=== PATIENT | female | born 1955 | race Caucasian/White ===

== ENCOUNTER 2023-04-11 15:25 | Outpatient (OUT) | payer BC, SELFPAY ==
[2023-04-11 16:03] LABS: Basophils Absolute Auto 0.1 10^3/uL (0.0-0.1); Basophils Percent Auto 1.3 % (0.2-2.0); Eosinophils Absolute Auto 0.2 10^3/uL (0.0-0.7); Eosinophils Percent Auto 2.8 % (0.9-7.0); Hematocrit 43.1 % (36.0-48.0); Hemoglobin 13.9 g/dL (12.0-16.0); Immature Granulocytes Abs Auto 0.02 10^3/uL (0.00-0.03); Immature Granulocytes Pct Auto 0.3 % (0.0-0.5); Lymphocytes Absolute Auto 2.1 10^3/uL (1.2-3.8); Lymphocytes Percent Auto 25.6 % (20.5-60.0); Mean Corpuscular HGB Conc 32.3 g/dL (29.9-35.2); Mean Platelet Volume 9.8 fL (9.5-13.5); Monocytes Absolute Auto 0.7 10^3/uL (0.3-0.8); Monocytes Percent Auto 9.1 % (1.7-12.0); Neutrophils Absolute Auto 4.9 10^3/uL (1.4-6.5); Neutrophils Percent Auto 60.9 % (43.0-75.0); Platelet Count 261 10^3/uL (150-450); Red Blood Count 4.79 10^6/uL (4.20-5.40); Red Cell Distribution Width 13.3 % (11.0-15.0)
[2023-04-11 16:19] LABS: Bilirubin Urine NEGATIVE (NEGATIVE); Blood Urine NEGATIVE (NEGATIVE); Clarity Urine CLEAR (CLEAR); Color Urine LT. YELLOW (YELLOW); Glucose Urine UA NEGATIVE (NEGATIVE); Ketones Urine NEGATIVE (NEGATIVE); Leukocyte Esterase Urine NEGATIVE (NEGATIVE); Nitrite Urine NEGATIVE (NEGATIVE); Protein Urine NEGATIVE (NEG/TRACE); Specific Gravity Urine <=1.005 (1.005-1.025); Urobilinogen Urine 0.2 EU/dL (0.2-1.0)
[2023-04-11 16:24] LABS: Estimated Average Glucose 100 mg/dL; Glycohemoglobin A1C 5.1 % (4.5-6.2)
[2023-04-11 16:38] LABS: Alanine Aminotransferase 20 U/L (14-59); Albumin Globulin Ratio 0.9; Albumin Level 3.8 g/dL (3.4-5.0); Alkaline Phosphatase 86 U/L (46-116); Anion Gap 9.2; Aspartate Amino Transferase 17 U/L (15-37); BUN Creatinine Ratio 23.3; Bilirubin Total 1.3 mg/dL (0.2-1.0); Calcium 9.3 mg/dL (8.5-10.1); Carbon Dioxide 28.5 mmol/L (21.0-32.0); Chloride 102 mmol/L (98-107); Estimated GFR (African America >60 (>=60); Estimated GFR (Non-African Ame >60 (>=60); Free T3 3.34 pg/mL (2.18-3.98); Globulin 4.1 g/dL; Glucose 89 mg/dL (74-106); Potassium 3.7 mmol/L (3.5-5.1); Sodium 136 mmol/L (136-145); Thyroid Stimulating Hormone 0.223 uIU/mL (0.358-3.740); Total Protein 7.9 g/dL (6.4-8.2)
[2023-04-11 17:03] LABS: Free T4 0.75 ng/dL (0.76-1.46)
== END 2023-04-11 15:26 | disposition home or self-care (01) ==
DX: R35.0 Frequency of micturition (principal); M54.50 Low back pain, unspecified; E03.9 Hypothyroidism, unspecified; R79.82 Elevated C-reactive protein (CRP); E55.9 Vitamin D deficiency, unspecified; E53.9 Vitamin B deficiency, unspecified
CPT/HCPCS: 36415; 80053; 81003; 82306; 82607; 82746; 83036; 84439; 84443; 84481; 85025; 86140; 87086

== ENCOUNTER 2023-05-31 18:41 | Emergency (ER) | payer BC, SELFPAY ==
[2023-05-31 18:46] VITALS: BP 178/82; PULSE 67; RESP 16; TEMP 36.6; O2SAT 99; BMI 35.7
[2023-05-31 19:27] LABS: Basophils Absolute Auto 0.2 10^3/uL (0.0-0.1); Basophils Percent Auto 1.5 % (0.2-2.0); Eosinophils Absolute Auto 0.3 10^3/uL (0.0-0.7); Eosinophils Percent Auto 3.1 % (0.9-7.0); Hematocrit 45.7 % (36.0-48.0); Hemoglobin 14.5 g/dL (12.0-16.0); Immature Granulocytes Abs Auto 0.03 10^3/uL (0.00-0.03); Immature Granulocytes Pct Auto 0.3 % (0.0-0.5); Lymphocytes Absolute Auto 2.7 10^3/uL (1.2-3.8); Mean Corpuscular HGB Conc 31.7 g/dL (29.9-35.2); Mean Corpuscular Hemoglobin 28.7 pg (26.7-34.0); Mean Corpuscular Volume 90.3 fL (81.0-99.0); Mean Platelet Volume 9.5 fL (9.5-13.5); Monocytes Absolute Auto 0.8 10^3/uL (0.3-0.8); Monocytes Percent Auto 8.3 % (1.7-12.0); Neutrophils Absolute Auto 5.9 10^3/uL (1.4-6.5); Neutrophils Percent Auto 59.8 % (43.0-75.0); Platelet Count 330 10^3/uL (150-450); Red Blood Count 5.06 10^6/uL (4.20-5.40); Red Cell Distribution Width 13.2 % (11.0-15.0); White Blood Count 9.9 10^3/uL (4.0-11.0)
[2023-05-31 19:28] LABS: Bilirubin Urine NEGATIVE (NEGATIVE); Blood Urine NEGATIVE (NEGATIVE); Clarity Urine CLEAR (CLEAR); Color Urine YELLOW (YELLOW); Glucose Urine UA NEGATIVE (NEGATIVE); Ketones Urine NEGATIVE (NEGATIVE); Leukocyte Esterase Urine NEGATIVE (NEGATIVE); Nitrite Urine NEGATIVE (NEGATIVE); Protein Urine NEGATIVE (NEG/TRACE); Specific Gravity Urine >=1.030 (1.005-1.025); Urine Microscopic Indicated NO; Urobilinogen Urine 0.2 EU/dL (0.2-1.0); pH Urine 5.5 (5.0-9.0)
--- NOTE | 2023-05-31 19:29 | CT_ITS ---
The [address] [address] Patient Name: KIP FLORES MRN: [id number] date: 1955 Sex: F Assigned Patient Location: ER Current Patient Location: ER Accession/Order Number: [id number] Exam Date: 05/31/2023 19:59 Report Date: 05/31/2023 20:36 At the request of: NARDA BEACH Procedure: CT abdomen pelvis wo con CT ABDOMEN/PELVIS WITHOUT IV CONTRAST. INDICATION: upper abdominal pain COMPARISON: There are no other studies available for comparison. TECHNIQUE: Contiguous axial images were obtained from the lung bases to the pelvic floor without intravenous or oral contrast. Coronal and sagittal reformations are provided. FINDINGS: LOWER LUNGS: Clear. LIVER/BILIARY TREE: No discrete lesion. No intrahepatic ductal dilatation. GALLBLADDER: Status post cholecystectomy.. CBD: Normal CBD. SPLEEN: Normal in size. PANCREAS: No appreciable peripancreatic fluid. No pancreatic ductal dilatation. No discrete lesion. ADRENALS: Normal. KIDNEYS: No hydronephrosis. No radiopaque calculus. STOMACH AND BOWEL: Stomach is unremarkable. No dilated bowel loops. No bowel wall thickening. APPENDIX: Not well-visualized. PERITONEAL CAVITY: No fluid. No fat stranding. ABDOMINAL WALL: No subcutaneous stranding. No subcutaneous fluid collection. LYMPH NODES: No mesenteric or retroperitoneal lymphadenopathy by CT criteria. ABDOMINAL AORTA: No aneurysm. PELVIS: No acute abnormality. MUSCULOSKELETAL: No acute osseous abnormality. CT/CT abdomen pelvis wo con IMPRESSION: No acute abnormality in the abdomen or pelvis. Electronically authenticated by: NELI BIRD Date: 05/31/2023 20:36
[2023-05-31 19:40] LABS: Alanine Aminotransferase 22 U/L (14-59); Albumin Globulin Ratio 0.9; Albumin Level 3.8 g/dL (3.4-5.0); Alkaline Phosphatase 108 U/L (46-116); Anion Gap 12.5; Aspartate Amino Transferase 16 U/L (15-37); BUN Creatinine Ratio 22.1; Bilirubin Total 0.7 mg/dL (0.2-1.0); Carbon Dioxide 32.2 mmol/L (21.0-32.0); Chloride 103 mmol/L (98-107); Estimated GFR (African America >60 (>=60); Estimated GFR (Non-African Ame >60 (>=60); Globulin 4.3 g/dL; Glucose 93 mg/dL (74-106); Potassium 3.7 mmol/L (3.5-5.1); Sodium 144 mmol/L (136-145); Total Protein 8.1 g/dL (6.4-8.2)
--- NOTE | 2023-05-31 19:44 | ED.GENADUL1 ---
HPI - General Adult General Chief complaint: Abdominal Pain Stated complaint: ABD PAIN/YELLOW SKIN Time Seen by Provider: 05/31/23 19:05 Source: patient Mode of arrival: walk-in Limitations: no limitations History of Present Illness HPI narrative: A 67-year-old female to the emergency department concern for jaundice. Patient reports that since Thanks she has had some cramping abdominal pain associated with diarrhea. The diarrhea is mostly resolved. She started [place] daughter about this today was concerned that her skin yellow. Patient also thinks that her later colored than typical. They came to emergency department for evaluation to make sure she doesn't have liver failure. She has history of cholecystectomy. Related Data Home Medications Medication Instructions Recorded Confirmed thyroid (pork) 15 mg tablet 15 mg PO BID 05/31/23 05/31/23 ([place] Thyroid) thyroid (pork) 30 mg tablet 30 mg PO BID 05/31/23 05/31/23 ([place] Thyroid) Allergies Allergy/AdvReac Type Severity Reaction Status Date / Time erythromycin base Allergy Severe Verified 05/31/23 18:45 Penicillins Allergy Unknown Verified 05/31/23 18:45 Sulfa (Sulfonamide Allergy Unknown Verified 05/31/23 18:45 Antibiotics) Review of Systems ROS Status of ROS 10 or more systems reviewed and unremarkable except as noted in history and below [facility] Surgical History (Updated 05/31/23 @ 18:53 by Josiah Martin) Hx of cholecystectomy ?Z90.49 - Acquired absence of other specified parts of digestive tract (ICD-10) History of ?Z98.891 - History of uterine scar from previous surgery (ICD-10) Social History Smoking status: Never smoker Exam Narrative Exam Narrative: VITALS: I have reviewed the triage vital signs. GENERAL: Well developed, well appearing adult in no acute distress. NEURO: Alert and oriented. Moves all extremities. Face is symmetric and expressive. EYES: PERRL. No scleral icterus or conjunctival injection. No discharge. HENT: Normocephalic, atraumatic. Hearing is grossly intact. Nares grossly patent and without discharge. Mucous membranes moist. NECK: No JVD. Patient moves neck without restriction. CARDIO: Rhythm regular. Normal rate. No murmur, rub, or gallop. Pulses equal bilaterally in the upper and lower extremity. No lower extremity edema. PULM: Lungs clear to auscultation in all james. No wheezes, rales, or rhonchi. No conversational dyspnea. No splinting, stridor, or accessory muscle use. GI/: Abdomen is soft and non-tender. Normoactive bowel sounds. EXTREMITIES: Symmetric muscle bulk. No joint swelling. No clubbing, cyanosis, or deformity. SKIN: Warm and dry. Normal turgor. No rash or lesions appreciated. PSYCH: Mood, affect, and interaction is appropriate to the setting. Constitutional Vital Signs, click to edit/add: Last Vital Signs Temp 98 F 05/31/23 18:46 Pulse 67 05/31/23 18:46 Resp 16 05/31/23 18:46 BP 178/82 H 05/31/23 18:46 Pulse Ox 99 05/31/23 18:46 O2 Del Method Room Air 05/31/23 18:46 Course Vital Signs Vital signs: Vital Signs Temperature 98 F 05/31/23 18:46 Pulse Rate 67 05/31/23 18:46 Respiratory Rate 16 05/31/23 18:46 Blood Pressure 178/82 H 05/31/23 18:46 Pulse Oximetry 99 05/31/23 18:46 Oxygen Delivery Method Room Air 05/31/23 18:46 Temperature 98 F 05/31/23 18:46 Pulse Rate 67 05/31/23 18:46 Respiratory Rate 16 05/31/23 18:46 Blood Pressure 178/82 H 05/31/23 18:46 Pulse Oximetry 99 05/31/23 18:46 Oxygen Delivery Method Room Air 05/31/23 18:46 Medical Decision Making [facility] Narrative Medical decision making narrative: 67-year-old female to the emergency department with chief complaint abdominal pain since and subjective yellow-colored skin noticed by her daughter. Vital stable, patient is afebrile. I doubt examination is benign. She does not have any scleral icterus or jaundice. Basic labs were ordered. CT scan abdomen and pelvis was ordered. He agrees with this plan. CT pelvis without acute findings. Her lab work is reviewed and is unremarkable. I discussed the reassuring workup with the patient. She'll follow up with her PCP. Discussed suspicion for postinfectious irritable bowel syndrome, I recommended probiotics. Patient agrees with this plan. Return precautions were discussed. All questions were answered. Patient was discharged home. Medical Records Medical records reviewed: Yes I reviewed the patient's medical records Lab Data Lab results reviewed: Yes I reviewed the patient's lab results Labs: Lab Results 05/31/23 05/31/23 Range/Units 19:15 19:19 WBC 9.9 (4.0-11.0) 10^3/uL RBC 5.06 (4.20-5.40) 10^6/uL Hgb 14.5 (12.0-16.0) g/dL Hct 45.7 (36.0-48.0) % MCV 90.3 (81.0-99.0) fL MCH 28.7 (26.7-34.0) pg MCHC 31.7 (29.9-35.2) g/dL RDW 13.2 (11.0-15.0) % Plt Count 330 (150-450) 10^3/uL MPV 9.5 (9.5-13.5) fL Neut % (Auto) 59.8 (43.0-75.0) % Lymph % (Auto) 27.0 (20.5-60.0) % [place] % (Auto) 8.3 (1.7-12.0) % Eos % (Auto) 3.1 (0.9-7.0) % Baso % (Auto) 1.5 (0.2-2.0) % Neut # (Auto) 5.9 (1.4-6.5) 10^3/uL Lymph # (Auto) 2.7 (1.2-3.8) 10^3/uL [place] # (Auto) 0.8 (0.3-0.8) 10^3/uL Eos # (Auto) 0.3 (0.0-0.7) 10^3/uL Baso # (Auto) 0.2 H (0.0-0.1) 10^3/uL Abs Immat Gran (auto) 0.03 (0.00-0.03) 10^3/uL Imm/Tot Granulo (auto) 0.3 (0.0-0.5) % Sodium 144 (136-145) mmol/L Potassium 3.7 (3.5-5.1) mmol/L Chloride 103 (98-107) mmol/L Carbon Dioxide 32.2 H (21.0-32.0) mmol/L Anion Gap 12.5 BUN 15.0 (7.0-18.0) mg/dL Creatinine 0.68 (0.55-1.02) mg/dL Est GFR ( Amer) >60 (>=60) Est GFR (Non-Af Amer) >60 (>=60) BUN/Creatinine Ratio 22.1 Glucose 93 (74-106) mg/dL Calcium 9.0 (8.5-10.1) mg/dL Total Bilirubin 0.7 (0.2-1.0) mg/dL AST 16 (15-37) U/L ALT 22 (14-59) U/L Alkaline Phosphatase 108 (46-116) U/L Total Protein 8.1 (6.4-8.2) g/dL Albumin 3.8 (3.4-5.0) g/dL Globulin 4.3 g/dL Albumin/Globulin Ratio 0.9 Lipase 63.0 (16.0-77.0) U/L Urine Color Yellow (YELLOW) Urine Clarity Clear (CLEAR) Urine pH 5.5 (5.0-9.0) Ur Specific [place] >=1.030 A (1.005-1.025) Urine Protein Negative (NEG/TRACE) mg/dL Urine Glucose (UA) Negative (NEGATIVE) mg/dL Urine Ketones Negative (NEGATIVE) mg/dL Urine Occult Blood Negative (NEGATIVE) Urine Nitrite Negative (NEGATIVE) Urine Bilirubin Negative (NEGATIVE) Urine Urobilinogen 0.2 (0.2-1.0) EU/dL Ur Leukocyte Esterase Negative (NEGATIVE) Imaging Data CT scan - abdomen: Attestation: I have reviewed the pertinent imaging results. Discharge Plan Discharge Chief Complaint: Abdominal Pain Clinical Impression: Abdominal pain Patient Disposition: Home, Self-Care Time of Disposition Decision: 20:50 Condition: Good Mode of Transportation: Private Vehicle Prescriptions / Home Meds: No Action thyroid (pork) [[place] Thyroid] 15 mg tablet 15 mg PO BID thyroid (pork) [[place] Thyroid] 30 mg tablet 30 mg PO BID Print Language: Turkmen Instructions: Abdominal Pain (ED) Additional Instructions: Follow-up with your doctor in the next week for review of symptoms. Take a probiotic. Stand Alone Forms: Portal Instructions Referrals: Physician,Non-Staff, MD [Primary Care Provider] - 1 week
[2023-05-31] MEDS: 0.9 % SODIUM CHLORIDE 1,000 ML 999 ML IV (20:09)
[2023-05-31 20:56] VITALS: BP 174/93; PULSE 78; RESP 16; O2SAT 100
[2023-05-31 21:00] VITALS: BP 150/80; PULSE 64; RESP 14; O2SAT 98
== END 2023-05-31 21:00 | disposition home or self-care (01) ==
PROVIDERS: Emergency Medicine; Emergency Provider Student in an Organized Health Care Education/Training Program
DX: R10.9 Unspecified abdominal pain (principal); Z90.49 Acquired absence of other specified parts of digestive tract; Z98.891 History of uterine scar from previous surgery; Z79.890 Hormone replacement therapy
CPT/HCPCS: 36415; 74176; 80053; 81003; 83690; 85025; 96360; 99285

== ENCOUNTER 2023-09-18 02:54 | Emergency (ER) | payer BC, SELFPAY ==
[2023-09-18 03:07] VITALS: BP 167/84; PULSE 71; TEMP 36.6; O2SAT 100; BMI 33.8
--- NOTE | 2023-09-18 03:23 | ED.EYEPROB1 ---
HPI - Eye Problem General Chief complaint: Eye Problems Stated complaint: L EYE DISCOMFORT Time Seen by Provider: 09/18/23 03:02 Source: patient Mode of arrival: walk-in Limitations: no limitations History of Present Illness HPI Narrative: Around 7pm the patient experienced a shimmery, kaleidoscope light change in her left peripheral field. She described it as an almost linear or boxlike edge but never had blackness or whiteness that accounted for loss of vision. This sensation was followed by a global headache that was worst in the occiput and around the eyes. She had additional episodes around the time that she was getting ready for bed. She never lost vision in either eye. She called the application tester nurse and was told to immediately come to the ED for evaluation. She arrives admitting to continued headache. No photophobia and no nausea or vomiting. No visual loss. She told me that she has had episodes similar to this in the past. She did not take anything for this headache tonight or prior to arrival. She wears readers but does not wear contact lenses or prescription glasses for distance. No recent injury to the head or neck. No recent upper extremity symptoms or URI. Related Data Home Medications ?Medication ?Instructions ?Recorded ?Confirmed thyroid (pork) 15 mg tablet 15 mg PO BID 05/31/23 05/31/23 ([place] Thyroid) thyroid (pork) 30 mg tablet 30 mg PO BID 05/31/23 05/31/23 ([place] Thyroid) Allergies Allergy/AdvReac Type Severity Reaction Status Date / Time erythromycin base Allergy Severe Verified 09/18/23 03:12 Penicillins Allergy Unknown Verified 09/18/23 03:12 Sulfa (Sulfonamide Allergy Unknown Verified 09/18/23 03:12 Antibiotics) [facility] Surgical History (Updated 05/31/23 @ 18:53 by Josiah Martin) Hx of cholecystectomy ?Z90.49 - Acquired absence of other specified parts of digestive tract (ICD-10) History of ?Z98.891 - History of uterine scar from previous surgery (ICD-10) Social History Smoking status: Never smoker Exam Narrative Exam Narrative: Nurses notes and vital signs reviewed and patient is not hypoxic. Afebrile General: Well-appearing and in no apparent distress. Skin: Warm, dry, no pallor noted. No rash to the face or around either eye. Head: Normocephalic, atraumatic. Neck: Supple, no meningismus. Eye: Pupils are equal, round and EOMI - Symmetrically reactive to light. No scleral icterus. No nystagmus. Normal accommodation and tracking. Ears, Nose, Mouth, and Throat: TM are clear, no posterior oropharynx erythema or nasal mucosal hypertrophy, uvula is mid-line Oral mucosa is moist Cardiovascular: Regular Rate and Rhythm without murmur, gallop or rub. Respiratory: No accessory muscle use or respiratory distress. Lungs are clear to auscultation, no wheezing, rales or rhonchi Musculoskeletal: normal ROM Neurological: A&O x4. No cranial nerve dysfunction observed. No truncal ataxia. Moves all extremities. Sensation intact. Psychiatric: Cooperative and interactive. Normal mood and affect. Constitutional Vital Signs, click to edit/add: Last Vital Signs Temp 97.8 F 09/18/23 03:07 Pulse 71 09/18/23 03:07 Resp 16 09/18/23 03:07 BP 167/84 H 09/18/23 03:07 Pulse Ox 100 09/18/23 03:07 O2 Del Method Room Air 09/18/23 03:07 Course Vital Signs Vital signs: Vital Signs Temperature 97.8 F 09/18/23 03:07 Pulse Rate 71 09/18/23 03:07 Respiratory Rate 16 09/18/23 03:07 Blood Pressure 167/84 H 09/18/23 03:07 Pulse Oximetry 100 09/18/23 03:07 Oxygen Delivery Method Room Air 09/18/23 03:07 Temperature 97.8 F 09/18/23 03:07 Pulse Rate 71 09/18/23 03:07 Respiratory Rate 16 09/18/23 03:07 Blood Pressure 167/84 H 09/18/23 03:07 Pulse Oximetry 100 09/18/23 03:07 Oxygen Delivery Method Room Air 09/18/23 03:07 MDM - Eye Problem MDM Narrative Medical decision making narrative: The patient describes symptoms consistent with ophthalmic migraine, which she has experienced in the past but she was concerned tonight because the extent of the symptomatology was different than what she had previously experienced. She has no visual change at this time. She initially described her headache as moderate but once I explained her diagnosis and offered treatment, which she refused, she told me that her headache was only mild and she is wanting to go home. She says that she plans to see her eye doctor as soon as possible because I have not had my vision checked in some time . I explained to her what an ophthalmic migraine is and what can potentially trigger this. We also discussed the difference between Vitreous detachment and retinal detachment. She has absolutely no signs at this time to suggest that she had a retinal detachment that would emergently threaten her vision. She refused offer for tylenol and zofran for her headache. She was discharged home with recommendation to see her technical laboratory asst for follow up, if she wants, but needs to emergently return if she develops any loss of vision, as compared to the shimmering or kaleidoscope like flashing that she had tonight. Discharge Plan Discharge Stand Alone Forms: Portal Instructions Chief Complaint: Eye Problems Clinical Impression: Ophthalmic migraine Patient Disposition: Home, Self-Care Time of Disposition Decision: 03:30 Prescriptions / Home Meds: No Action thyroid (pork) [[place] Thyroid] 15 mg tablet 15 mg PO BID thyroid (pork) [[place] Thyroid] 30 mg tablet 30 mg PO BID Print Language: Tajik Instructions: Ocular Migraine (ED) Referrals: Physician,Non-Staff, MD [Primary Care Provider] - 1 week
--- NOTE | 2023-09-18 03:55 | PC.NURSE ---
Visual acuity OS 20/80 OD 20/60 OU 20/50
== END 2023-09-18 03:46 | disposition home or self-care (01) ==
PROVIDERS: Emergency Provider Emergency Medicine
DX: G43.B0 Ophthalmoplegic migraine, not intractable (principal); Z90.49 Acquired absence of other specified parts of digestive tract
CPT/HCPCS: 99283

== ENCOUNTER 2023-12-05 14:02 | Outpatient (OUT) | payer BC, SELFPAY ==
--- NOTE | 2023-12-05 | MM_ITS ---
Patient Name: IKP FLORES MR#: [id number] : 1955 Exam Date: 12/05/2023 Ordering Doctor: Non-Staff Physician RADIOLOGY REPORT PROCEDURE: MM TOMOSYNTHESIS SCREENING BI COMPARISON: None. INDICATIONS: Screening Calculator Name NCI Breast Cancer Risk Assessment Tool 5 Year Breast Cancer Risk 1.50% Lifetime Breast Cancer Risk 5.40% Personal Breast Cancer No Personal Ovarian Cancer No Treatments None Family Cancers None LOCATION: [facility] BREAST COMPOSITION: There are scattered areas of fibroglandular density. FINDINGS: DIAGNOSTIC CATEGORY 1--NEGATIVE. NO CHANGE FROM COMPARISON ASSESSMENT. Scattered benign-appearing calcifications are present. Scattered benign-appearing lymph nodes are present. RIGHT BREAST: No significant suspicious finding. LEFT BREAST: No significant suspicious finding. RECOMMENDATIONS: ROUTINE MAMMOGRAM AND CLINICAL EVALUATION IN 12 MONTHS. PLEASE NOTE: A NORMAL MAMMOGRAM DOES NOT EXCLUDE THE POSSIBILITY OF BREAST CANCER. A CLINICALLY SUSPICIOUS PALPABLE LUMP SHOULD BE BIOPSIED. Dictated by: Josiah Aly MD on 12/08/2023 at 08:42 Approved by: Josiah Aly MD on 12/08/2023 at 08:43
== END 2023-12-05 14:03 | disposition home or self-care (01) ==
DX: Z12.31 Encounter for screening mammogram for malignant neoplasm of breast (principal)
CPT/HCPCS: 77063; 77067

== ENCOUNTER 2024-04-04 17:42 | Emergency (ER) | payer BC, SELFPAY ==
[2024-04-04 17:50] VITALS: BP 161/85; PULSE 57; TEMP 36.7; O2SAT 98; BMI 32.9
--- NOTE | 2024-04-04 18:08 | ED_ITS ---
HPI HPI - General Adult General Chief complaint: Allergic Reaction Stated complaint: Allergic Reaction Time Seen by Provider: 04/04/24 17:56 Source: patient Mode of arrival: walk-in Limitations: no limitations History of Present Illness HPI narrative: 68-year-old female to the emergency department with chief complaint of itching. Patient notes that over the last few days she has developed some increased itching mostly over her face. No discrete rash. She does have a history of psoriasis and that seems to be worse than usual. She is currently on a prep for a colonoscopy. She is wondering if the MiraLAX could be causing this. She spoke to a pharmacist today and they referred her to the emergency department. Related Data Home Medications ?Medication ?Instructions ?Recorded ?Confirmed thyroid (pork) 15 mg tablet 15 mg PO BID 05/31/23 05/31/23 ([place] Thyroid) thyroid (pork) 30 mg tablet 30 mg PO BID 05/31/23 05/31/23 ([place] Thyroid) Allergies Allergy/AdvReac Type Severity Reaction Status Date / Time erythromycin base Allergy Severe Rash Verified 04/04/24 17:50 Penicillins Allergy Unknown Rash Verified 04/04/24 17:50 Sulfa (Sulfonamide Allergy Unknown Rash Verified 04/04/24 17:50 Antibiotics) Opioid HPI Opioid Management Most Recent Opioid Data: Last Pain Scale 5 09/18/23 03:53 09/18/23 Review of Systems ROS Status of ROS 10 or more systems reviewed and unremark able except as noted in history and below PFSH PFS Surgical History (Updated 05/31/23 @ 18:53 by Josiah Martin) Hx of cholecystectomy ?Z90.49 - Acquired absence of other specified parts of digestive tract (ICD- 10) History of ?Z98.891 - History of uterine scar from previous surgery (ICD-10) Social History Smoking status: Never smoker Little interest or pleasure in doing things: not at all Feeling down, depressed, or hopeless: not at all Exam Narrative Exam Narrative: VITALS: I have reviewed the triage vital signs. GENERAL: Well developed, well appearing adult in no acute distress. NEURO: Alert and oriented. Moves all extremities. Face is symmetric and expressive. EYES: PERRL. No scleral icterus or conjunctival injection. No discharge. HENT: Normocephalic, atraumatic. Hearing is grossly intact. Nares grossly patent and without discharge. Mucous membranes moist. NECK: No JVD. Patient moves neck without restriction. EXTREMITIES: Symmetric muscle bulk. No joint swelling. No clubbing, cyanosis, or deformity. SKIN: Warm and dry. Normal turgor. Diffuse psoriatic plaques. No hives. PSYCH: Mood, affect, and interaction is appropriate to the setting. Constitutional Vital Signs, click to edit/add: Last Vital Signs Temp 98.1 F 04/04/24 17:50 Pulse 57 L 04/04/24 17:50 Resp 20 04/04/24 17:50 BP 161/85 H 04/04/24 17:50 Pulse Ox 98 04/04/24 17:50 O2 Del Method Room Air 04/04/24 17:50 Course Vital Signs Vital signs: Vital Signs Temperature 98.1 F 04/04/24 17:50 Pulse Rate 57 L 04/04/24 17:50 Respiratory Rate 20 04/04/24 17:50 Blood Pressure 161/85 H 04/04/24 17:50 Pulse Oximetry 98 04/04/24 17:50 Oxygen Delivery Method Room Air 04/04/24 17:50 Temperature 98.1 F 04/04/24 17:50 Pulse Rate 57 L 04/04/24 17:50 Respiratory Rate 20 04/04/24 17:50 Blood Pressure 161/85 H 04/04/24 17:50 Pulse Oximetry 98 04/04/24 17:50 Oxygen Delivery Method Room Air 04/04/24 17:50 Medical Decision Making MDM Narrative Medical decision making narrative: Well-appearing 68-year-old female to the emergency department chief complaint of itching. Vital stable, the patient is afebrile. She declines any treat with medications. We discussed MiraLAX and how this is likely not the cause. She will continue her colonoscopy prep. She will monitor symptoms. Patient was discharged home Discharge Plan Discharge Chief Complaint: Allergic Reaction Clinical Impression: Rash Patient Disposition: Home, Self-Care Time of Disposition Decision: 18:05 Condition: Good Mode of Transportation: Private Vehicle Prescriptions / Home Meds: No Action thyroid (pork) [[place] Thyroid] 15 mg tablet 15 mg PO BID thyroid (pork) [[place] Thyroid] 30 mg tablet 30 mg PO BID Print Language: French Instructions: Acute Rash (ED) Additional Instructions: Call the office of your primary care doctor to arrange for follow-up within the above-stated timeframe. Your ED visit was focused on your acute issue and does not replace primary care. You should review your labs, imaging, and diagnoses from this ED visit with your primary care physician. There may be non-emergent/ incidental findings that need further evaluation. You should review your vital signs including blood pressure with your PCP. If you were prescribed medications you should discuss possible side-effects and drug interactions with your pharmacist. Call 911 or go to the nearest Emergency Department if you develop any new or worsening symptoms. Referrals: Physician,Non-Staff, MD [Primary Care Provider] - 1 week
== END 2024-04-04 18:17 | disposition home or self-care (01) ==
PROVIDERS: Emergency Provider Student in an Organized Health Care Education/Training Program
DX: R21 Rash and other nonspecific skin eruption (principal); L40.9 Psoriasis, unspecified
CPT/HCPCS: 99281

== ENCOUNTER 2024-09-27 22:36 | Emergency (ER) | payer BC, SELFPAY ==
[2024-09-27 22:41] VITALS: BP 172/78; PULSE 58; TEMP 36.6; O2SAT 100; BMI 33.8
[2024-09-27 23:40] VITALS: BP 157/72; O2SAT 99
[2024-09-27 23:50] VITALS: O2SAT 97
--- NOTE | 2024-09-27 23:50 | ED_ITS ---
HPI HPI - General Adult General Chief complaint: Headache Stated complaint: visual flashing lights, recurring Time Seen by Provider: 09/27/24 23:43 Source: patient Mode of arrival: walk-in Limitations: no limitations History of Present Illness HPI narrative: past history of migraine with wavy visual scintillations. Tonight has mild migraine. comes in because she noted flashing while light right peripheral vision around 6pm. states they cleared up around 8pm. Had recurrence about 10pm and decided to come in. no recurrence. Has new floater right eye. Vision remains normal Related Data Home Medications ?Medication ?Instructions ?Recorded ?Confirmed thyroid (pork) 15 mg tablet 15 mg PO BID 05/31/23 09/27/24 ([place] Thyroid) thyroid (pork) 30 mg tablet 30 mg PO BID 05/31/23 09/27/24 ([place] Thyroid) magnesium citrate 100 mg tablet 100 mg PO DAILY 09/27/24 09/27/24 magnesium glycinate mg PO 09/27/24 Allergies Allergy/AdvReac Type Severity Reaction Status Date / Time erythromycin base Allergy Severe Rash Verified 09/27/24 22:48 Penicillins Allergy Unknown Rash Verified 09/27/24 22:48 Sulfa (Sulfonamide Allergy Unknown Rash Verified 09/27/24 22:48 Antibiotics) Opioid HPI Opioid Management Most Recent Opioid Data: Last Pain Scale 5 09/18/23 03:53 09/18/23 Review of Systems ROS Status of ROS 10 or more systems reviewed and unremark able except as noted in history and below PFSH PFSH Surgical History (Updated 05/31/23 @ 18:53 by Josiah Martin) Hx of cholecystectomy ?Z90.49 - Acquired absence of other specified parts of digestive tract (ICD- 10) History of ?Z98.891 - History of uterine scar from previous surgery (ICD-10) Social History Smoking status: Never smoker Little interest or pleasure in doing things: not at all Feeling down, depressed, or hopeless: not at all Exam Constitutional Vital Signs, click to edit/add: Last Vital Signs Temp 97.9 F 09/27/24 22:41 Pulse 58 L 09/27/24 22:41 Resp 18 09/27/24 22:41 BP 134/75 09/28/24 00:00 Pulse Ox 99 09/28/24 00:00 O2 Del Method Room Air 09/27/24 22:41 Common normals: no apparent distress, average body habitus, oriented x3, no limitations, healthy appearing, alert and well nourished [facility] Common normals: normocephalic and head/scalp atraumatic Eye Common normals: PERRL and EOMs intact bilaterally Other: red reflex noted bilat. Poor visualizations of vessels and disc but symmetric Respiratory Common normals: normal respiratory effort and no use of accessory muscles Cardio Common normals: regular rate and regular rhythm Extremity Common normals: normal to inspection and full ROM Neuro Common normals: oriented x3, CN's II-XII intact bilaterally and moves all extremities Psych Appearance: grossly normal Course Vital Signs Vital signs: Vital Signs Temperature 97.9 F 09/27/24 22:41 Pulse Rate 58 L 09/27/24 22:41 Respiratory Rate 18 09/27/24 22:41 Blood Pressure 172/78 H 09/27/24 22:41 Pulse Oximetry 100 09/27/24 22:41 Oxygen Delivery Method Room Air 09/27/24 22:41 Temperature 97.9 F 09/27/24 22:41 Pulse Rate 58 L 09/27/24 22:41 Respiratory Rate 18 09/27/24 22:41 Blood Pressure 134/75 09/28/24 00:00 Pulse Oximetry 99 09/28/24 00:00 Oxygen Delivery Method Room Air 09/27/24 22:41 Medical Decision Making MDM Narrative Medical decision making narrative: patient has past history of visual scintillations associated with her migraine headache and also history of floaters. Tonight noticed lightning flash on and off right peripheral vision. Resolved and then returned. No effect on her vision. She has mild migraine now but she does not typically see flashing white light with her migraines. She also noticed a new floater. Her exam is neg. Does not feel she needs the migraine treated as it is mild. Discussed with operations section manager paleontological helper at [facility]-Dr Valerio(? sp) who felt she should be seen in follow up by her eye doctor tomorrow. Patient informed of the above and discharged home Discharge Plan Discharge Chief Complaint: Headache Clinical Impression: Abnormal peripheral vision Patient Disposition: Home, Self-Care Prescriptions / Home Meds: No Action thyroid (pork) [[place] Thyroid] 15 mg tablet 15 mg PO BID thyroid (pork) [[place] Thyroid] 30 mg tablet 30 mg PO BID magnesium citrate 100 mg tablet 100 mg PO DAILY magnesium glycinate 100 mg magnesium capsule PO Print Language: [place] Instructions: Eye (Visual) Floaters (ED) Additional Instructions: follow up with your eye doctor tomorrow Referrals: Physician,Non-Staff, MD [Primary Care Provider] - 1 week
[2024-09-28] VITALS: BP 134/75; O2SAT 99
[2024-09-28 00:20] VITALS: O2SAT 96
[2024-09-28 00:30] VITALS: BP 123/75; O2SAT 97
[2024-09-28 00:37] VITALS: O2SAT 95
[2024-09-28 01:00] VITALS: BP 140/79
== END 2024-09-28 01:26 | disposition home or self-care (01) ==
PROVIDERS: Emergency Provider Internal Medicine
DX: H53.8 Other visual disturbances (principal)
CPT/HCPCS: 99282